=== PATIENT | male | born 1995 | race Two or more races ===

== ENCOUNTER 2018-12-07 10:36 | Day surgery (SDC) | payer OTHER ==
[2018-12-07] MEDS ORDERED: MIDAZOLAM 1 MG/ML 2 ML INJ (12:37)
[2018-12-07] MEDS ORDERED: POLYMYXIN B 500000 UNIT INJ (13:06)
[2018-12-07] MEDS: POLYMYXIN/BACITRACIN 1L IRRIG IRR (13:16)
[2018-12-07] MEDS: BUPIVACAINE 0.25% (MPF) 30 ML INJ (13:16)
[2018-12-07] MEDS ORDERED: ROCURONIUM 50 MG INJ (13:24)
[2018-12-07] MEDS ORDERED: PROPOFOL 20 ML (13:24)
[2018-12-07] MEDS ORDERED: LIDOCAINE 2% (SDV) 5 ML INJ (13:24)
[2018-12-07] MEDS ORDERED: CEFAZOLIN 1 GM INJ (13:24)
[2018-12-07] MEDS ORDERED: ONDANSETRON 4 MG INJ (13:27)
[2018-12-07] MEDS ORDERED: POLYMYXIN/BACITRACIN 1L IRRIG (13:47)
[2018-12-07] MEDS ORDERED: GLYCOPYRROLATE 0.4 MG INJ (13:48)
[2018-12-07] MEDS ORDERED: NEOSTIGMINE 3 MG/3 ML SYRINGE (13:48)
[2018-12-07] MEDS ORDERED: ALBUTEROL 0.083% (NEB) 2.5 MG/3 ML AMP HHN (14:00)
[2018-12-07] MEDS ORDERED: LABETALOL HCL 20MG INJ IV (14:00)
[2018-12-07] MEDS ORDERED: DIPHENHYDRAMINE 50 MG INJ IV (14:00)
[2018-12-07] MEDS ORDERED: EPHEDrine 25 MG/5 ML SYG IV (14:00)
[2018-12-07] MEDS ORDERED: OXYCODONE/ACETAMINOPHEN (5/325) TAB PO ×2 (14:00)
[2018-12-07] MEDS ORDERED: LEVALBUTEROL (NEB) 0.63 MG/3 ML AMP HHN (14:00)
[2018-12-07] MEDS ORDERED: HYDROmorphONE 1 MG/5 ML IV SYRINGE IV ×3 (14:00)
[2018-12-07] MEDS ORDERED: morphine 2 MG INJ IV ×2 (14:00)
[2018-12-07] MEDS ORDERED: hydrALAzine 20 MG INJ IV (14:00)
[2018-12-07] MEDS ORDERED: FENTAnyl 50 MCG/ML VIAL IV (14:00)
[2018-12-07] MEDS ORDERED: KETOROLAC 15 MG INJ IV (14:00)
[2018-12-07] MEDS ORDERED: ATROPINE 1 MG/10 ML SYRINGE IV (14:00)
[2018-12-07] MEDS ORDERED: MEPERIDINE 25 MG INJ (14:17)
[2018-12-07] MEDS: MEPERIDINE 25 MG INJ IV (14:38)
[2018-12-07] MEDS: ONDANSETRON 4 MG INJ IV (14:43)
[2018-12-07] MEDS: FENTAnyl 50 MCG/ML VIAL IV (14:44)
[2018-12-07] MEDS: HYDROCODONE/APAP (5/325) TAB PO (15:57)
== END 2018-12-07 16:10 | disposition home or self-care (01) ==
LOC: SDS 10:36
DX: K40.90 Unilateral inguinal hernia, without obstruction or gangrene, not specified as recurrent (principal)
CPT/HCPCS: 49507